=== PATIENT | female | born 1970 ===

== ENCOUNTER 2023-12-27 18:41 | Emergency (ER) | payer SELFPAY ==
[2023-12-27 18:47] VITALS: BP 109/59; PULSE 94; RESP 18; TEMP 36.6; O2SAT 97
--- NOTE | 2023-12-27 21:47 | PC.NURSE ---
At 2114 I was informed that this patient wanted to speak with the charge nurse in the waiting room. Upon talking to the patient she tells me that she is upset about having to wait in the waiting room. She is under the understanding that patients that arrive in an ambulance get more immediate care. I explained to her that ambulances get sent to the waiting room often and are triaged and seen as appropriate. She tells me that she has been working for the [employer] for many years and known how hospitals work. She asks for my name and my landscaping manager's name. I offered to get her another warm blanket and an ice pack for her pain. She says that will not be sufficient for her pain. This patient eventually called the draw machine operator and spoke to the warehouse worker 2nd shift who came to the waiting room to speak with the patient.
== END 2023-12-27 23:01 | disposition left against medical advice (07) ==
DX: S09.90XA Unspecified injury of head, initial encounter (principal)
CPT/HCPCS: 99199